=== PATIENT | female | born 1985 | race Hispanic/Latino ===

== ENCOUNTER → 2017-12-03 | Day surgery (SDC) | payer OTHER ==
[~2017-12-03] MED LIST: ACETAMINOPHEN 1000 MG/100 ML 100 ML IV ONE; CEFTRIAXONE SOD 1 GM VIAL ONE; DEXAMETHASONE SOD PHOS INJ 4 MG/ML VIAL ONE; FENTANYL CITRATE/PF 100MCG/2 ML INJ ONE; HYDROMORPHONE 1MG/1ML INJ ONE; IOPAMIDOL 300MG/ML 50ML INFUS..BTL IV ONE; KETOROLAC TROMETHAMINE 30 MG/ML VIAL ONE; NORCO 5-325 TA1 EACH PO; ONDANSETRON HCL INJ 2 MG/ML VIAL ONE; PROMETHAZINE HC25 M1 PO; PROPOFOL IV EMULSION 10 MG/ML 20 ML VIAL ONE; SEVOFLURANE INHAL SOLN 250 ML PEN BTL ONE
[2017-12-03 10:05] VITALS: BP 106/67
--- NOTE | 2017-12-03 14:18 | Operative Report ---
DATE OF PROCEDURE: December 03, 2017 PREOPERATIVE DIAGNOSIS: Left ureteral stone. POSTOPERATIVE DIAGNOSIS: Left ureteral stone. PROCEDURES PERFORMED: 1. Cystoscopy. 2. Left retrograde pyelogram. 3. Left ureteroscopy with stone extraction. ANESTHESIA: General anesthesia. ESTIMATED BLOOD LOSS: Minimal. INDICATIONS: Ms. Danielle Valdez is a 32-year-old woman who recently presented with left flank pain, nausea and vomiting. She was found to have a 5 mm stone, and a stent was placed by another physician at that point in time. Reportedly they were unable to allow instruments into the right ureter for stone retrieval at that time. She now presents for definitive surgical management of this problem. OPERATIVE PROCEDURE IN DETAIL: The patient was brought into the operating room and placed in the supine position and after administration of general anesthesia was placed in the dorsal lithotomy position and prepped and draped in the usual sterile fashion. A cystourethroscopy was performed using a 21-Macedonian cystoscope. The anterior and posterior urethrae were noted to be normal. The bladder was entered without difficulty. Upon entrance into the bladder, the ureteral orifices were in their normal anatomical position and produced clear reflux. There was a stent exiting the left ureteral orifice, and this was grasped with a flexible grasper and removed from the urethra. A wire was placed through this up into the left renal pelvis under fluoroscopic guidance. The stone, approximately 5 mm in size, was noted to be near the transverse process of the L4 vertebral body. Rigid ureteroscopy was then performed. The stone was in its previously described location. It was grasped with a basket and removed in its entirety. A 12-14 ureteral access sheath was then placed, and flexible ureteroscopy was performed to explore the renal pelvis and calices. There were no other calcifications noted. There was a small amount of inflammatory material from the prior stent. This was felt to pass without difficulty. The ureteral access sheath was successfully removed as were all scopes. The bladder was drained in its entirety. Patient was returned to a supine position, and the anesthesia was reversed. She was transferred to a bed and taken to the postanesthesia care unit in good condition. Of note, the needle and instrument count were correct at the conclusion of the case. Job#: [id number] EV
--- NOTE | 2017-12-03 16:50 | Diagnostic Imaging Report ---
PROCEDURE: X-RAY RETROGRADE PYELOGRAM COMPARISON: None. INDICATIONS: Not provided. FINDINGS: Multiple intraoperative spot images of the abdomen and pelvis were obtained. There is retrograde cannulization of the left ureter. An internal ureteral stent is present on initial images. There is moderate hydronephrosis. No definite collecting system or ureteral filling defect is demonstrated to suggest a stone. Cumulative fluoro time: 34 seconds. Cumulative area dose product: 343.38 cGycm2 Cumulative air kerma: 21.19 mGy CONCLUSION: Retrograde pyelogram as described above. Dictated by: LOU BELTRAN M.D. on 12/03/2017 at 16:56 Electronically approved by: LOU BELTRAN M.D. on 12/03/2017 at 16:56
== END | disposition home or self-care (01) ==
LOC: OR 06:32
PROVIDERS: ATTEND Urology
DX: N20.1 Calculus of ureter (principal); Z46.6 Encounter for fitting and adjustment of urinary device
CPT/HCPCS: 52352; 74420; 81025; 88300; C1766; J0696; J1100; J1170; J1885; J2405; Q9967